=== PATIENT | male | born 1970 ===

== ENCOUNTER 2023-01-13 15:43 | Outpatient (CLI) | payer BC ==
[2023-01-13 16:28] VITALS: BP 110/70
--- NOTE | 2023-01-13 16:28 | SLEEP CARE CONSULTATION ---
Information from patient questionnaire entered by Ebonie Barrios. I have reviewed and concur with the information entered by Ebonie Barrios. This document represents the service I personally performed and the decisions made by me, Antonella Rosales ARNP. History of Present Illness Service Date and Time: 01/13/2023 1543 Reason for Visit: New patient, Previously diagnosed sleep apnea, sleep apnea on CPAP therapy Chief Complaint: reports: Other (UPDATE SUPPLIES ) Date of Onset: 2013 Usual bedtime: 1030-11 Time it takes to fall asleep: 10-15MIN Snores at night: Yes Observed to quit breathing while asleep: Yes Sleeps alone due to snoring: No Number of times waking at night: 1-2 Reasons for waking at night: reports: Bathroom Toss, Turn, or Twitch while sleeping: Yes Recalls having dreams: Yes Usually gets out of bed at: 630AM Feels refreshed in the morning: Yes Morning headache: No Sleepy or fatigued during the day: Yes Ever fallen asleep while driving: No Takes day naps: Yes Dreams during day naps: No Prior sleep studies: Yes Additional HPI information: MARJORIE KNOWLES was previously diagnosed to have unknown, AHI unknown, sleep apnea-hypopnea syndrome and comes in today to establish care for CPAP therapy. - Parasomnia Symptoms Ever been unable to move upon waking from sleep: No Walks in sleep: No Talks in sleep: Yes Ever acted out dreams in sleep: Yes Ever felt weak in the knees when startled or emotional: No Bothered by creepy, crawly, restless sensations in legs: Yes Problems with memory or concentration: Yes CPAP Compliance Data - Data Reviewed with Patient Average duration of nightly device use: 7 hours 41 minutes Compliance rate %: 100 (90/90 days used) Current pressure setting (cmH2O): 11-14 Average residual AHI: 0.7 Central apnea: 0.3 Obstructive apnea: 0.1 Average large leak: 0 lpm Compliance data discussion: He has a Resmed Airsense 10 that was updated in 2021. He is using an online CPAP supplier. He is using a nasal cushion mask, Resmed Airfit N20. Subjective Patient concerns: denies: aerophagia, mask discomfort, air blowing in eyes, mask leak noise, condensation in mask/hose, nasal congestion, dry mouth, nose, throat, epistaxis Observed to snore while using device: No Current pressure setting perceived as: comfortable On therapy, patient: reports: sleeping better, awakening more refreshed, being more awake and alert during the day, more rested overall. 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 Patient is and lives in [place]. Have you smoked in the past 12 months: No Alcohol use: Yes Alcohol amount and frequency: 1-2 OUNCES 1-2 WEEK Caffeine use: Yes Caffeine amount and frequency: 2SHOT [employer] EVERY MORNING Family History Family history of sleep disordered breathing: No Family Hx Sleep Apnea: Grandparent: Snoring Allergies and Home Medications Known drug allergies: Yes (AMOXICILLIN) Drug allergies reviewed: Yes Home medication list reviewed: Yes (see updated list in EMR) Review of Systems Weight gain over past 5 years: 10, just started walking again to try to lose weight Cardiovascular: reports: high blood pressure Gastrointestinal: reports: heartburn Neurological: reports: other (LOWT). denies: headaches Psychiatric: reports: depression Ear/Nose/Throat: denies: tonsillectomy Endocrine: denies: thyroid disease Physical Exam Vital signs obtained and entered by: EBONIE Parisi MA Blood Pressure: 110/70 (LEFT ARM) Cuff size: regular Heart Rate: 58 O2 Saturation: 96 Height: 5 ft 11 in Weight: 261 lb 12.8 oz Body Mass Index: 36.5 BMI Classification: Obese Neck circumference: 17 Heart: regular rate and rhythm Lungs: clear bilaterally Impression and Plan 1. Obstructive Sleep Apnea-Hypopnea Syndrome, unknown, with good treatment compliance and good apnea control. On CPAP therapy, the patient has better sleep quality and is more rested overall. Patient is buying his CPAP supplies online and wishes to continue. He states he has a high deductible and uses his HSA to pay for his supplies normally. He did not have copy of his sleep study with him. I asked him to try to get us a copy for our records and he voiced agreement. Patient denies problems with oral dryness, nasal congestion, epistaxis, skin irritation or aerophagia. Patient has significant improvement of their sleep apnea and is satisfied with current CPAP therapy. Patient's apnea severity and rationale for treatment to reduce apnea, improve sleep quality and reduce cardiovascular and cerebrovascular events was reviewed. I also reviewed the benefit of consistent device use of CPAP for hypertension, gastric reflux and depression. 2. Obesity, unspecified. Currently patients BMI is 36.5. Obesity increases the risk of apnea, CPAP pressure requirements and overall health risks especially cardiovascular and diabetes. Thus patient is advised to lose weight. * Continue auto CPAP pressure at 11-14 cmH2O * Obtain copy of last sleep study * Notify me if snoring with mask or feeling that the pressure is too much or too little * Attempt to lose weight * Call this office if any problems using CPAP * Return for follow up in 1 year, or sooner if concerns arise Counseling Topics: Spare mask, Weight loss health impact Visit Type: In Office Time Spent with Patient (minutes): 31 Provider Statement: I spent 100% of the Face to Face Visit with the patient with greater than 50% spent counseling the patient and coordination of care.
== END 2023-01-13 15:44 | disposition home or self-care (01) ==
LOC: SC 15:43
PROVIDERS: ATTEND Nurse Practitioner Family
DX: G47.33 Obstructive sleep apnea (adult) (pediatric) (principal); E66.9 Obesity, unspecified; Z68.34 Body mass index [BMI] 34.0-34.9, adult
CPT/HCPCS: 99203; 99212

== ENCOUNTER 2023-06-08 08:12 | Day surgery (SDC) | payer BC ==
--- NOTE | 2023-06-08 08:39 | ANESTHESIA ---
Pre-Anesthesia VS, & Labs - Diagnosis screening - Procedure colonoscopy Vital Signs: Temp Pulse Resp BP Pulse Ox O2 Flow Rate 36 C L 67 16 125/80 99 06/08/23 08:27 06/08/23 08:27 06/08/23 08:27 06/08/23 08:06/08/23 08:27 Height: 5 ft 11 in Weight (kg): 112.9 kg Body Mass Index: 34.7 BMI Classification: Obese - NPO >8 hours Last Fluid Intake: am prep - Lab Results Lab results reviewed: Yes Home Medications and Allergies Atorvastatin [Lipitor] See Rx Instructions .ROUTE .COMPLEX 01/13/23 Escitalopram [Lexapro] See Rx Instructions .ROUTE .COMPLEX 01/13/23 Famotidine [Pepcid] See Rx Instructions .ROUTE .COMPLEX 01/13/23 Lisinopril/Hydrochlorothiazide [Zestoretic 20-12.5 mg Tablet] See Rx Instructions .ROUTE .COMPLEX 01/13/23 Testosterone See Rx Instructions .ROUTE .COMPLEX 01/13/23 Venlafaxine ER [Effexor ER] See Rx Instructions .ROUTE .COMPLEX 01/13/23 Allergies/Adverse Reactions: Allergies Allergy/AdvReac Type Severity Reaction Status Date / Time amoxicillin Allergy Rash Verified 06/07/23 12:55 Anes History & Medical History - Anesthetic History Anesthesia Complications: reports: No previous complications Family history of Anesthesia Complications: Denies Family history of Malignant Hyperthermia: Denies - Medical History Cardiovascular: reports: Hypertension, High cholesterol Pulmonary: reports: Sleep apnea, CPAP use Gastrointestinal: reports: GERD Urinary: reports: None Musculoskeletal: reports: None Endocrine/Autoimmune: reports: None Skin: reports: None Psychosocial: reports: Alcohol (social) History of Cancer?: No - Surgical History Orthopedic: reports: Other Exam General: Alert, Oriented x3, Cooperative Dental: WNL Mouth Openin Fingerbreadth Neck Mobility: Normal Mallampati classification: II Thyromental Distance: 4-6 cm Respiratory: Lungs clear, Normal breath sounds, No respiratory distress Cardiovascular: Regular rate Neurological: Normal speech Mental/Cognitive Status: Alert/Oriented X3, Normal for patient Cognitive Status: Within normal limits Plan Anesthesia Type: Total IV Consent for Procedure(s) Verified and Reviewed: Yes Code Status: Attempt Resuscitation ASA classification: 2-Mild systemic disease Is this case an emergency?: No
[2023-06-08] MEDS ORDERED: LACTATED RINGERS 1,000 ML IV ONE (08:52)
[2023-06-08] MEDS ORDERED: PROPOFOL 500 MG/50 ML 500 MG/50 ML VIAL ONE (09:10)
[2023-06-08] MEDS ORDERED: MIDAZOLAM 2 MG/2 ML VIAL ONE (09:10)
[2023-06-08] MEDS ORDERED: LACTATED RINGERS 400 ML IV ONE (09:50)
[2023-06-08 10:15] VITALS: BP 109/77; O2SAT 100
--- NOTE | 2023-06-08 10:21 | ANESTHESIA POST OP EVALUATION ---
Anesthesia Post Eval - Post Anesthesia Eval Vitals: Last Vital Signs Temp 36.1 C L 06/08/23 10:05 Pulse 60 06/08/23 10:05 Resp 15 06/08/23 10:05 BP 109/77 06/08/23 10:05 Pulse Ox 100 06/08/23 10:05 O2 Flow Rate CV Function Including HR & BP: Stable Pain Control: Satisfactory Nausea & Vomiting: Negative Mental Status: Baseline Respiratory Status: Airway Patent Hydration Status: Satisfactory Anesthesia Complications: None
== END 2023-06-08 08:13 | disposition home or self-care (01) ==
LOC: SDS 08:12
PROVIDERS: ATTEND Surgery
DX: Z12.11 Encounter for screening for malignant neoplasm of colon (principal); K64.1 Second degree hemorrhoids; I10 Essential (primary) hypertension; G47.33 Obstructive sleep apnea (adult) (pediatric); E66.9 Obesity, unspecified; Z68.34 Body mass index [BMI] 34.0-34.9, adult
CPT/HCPCS: 45378; J7120